=== PATIENT | male | born 1945 | race Caucasian/White ===

== ENCOUNTER 2021-10-17 10:20 | Outpatient (CLI) | payer MEDICARE | END 2021-10-17 10:21 | disposition home or self-care (01) | LOC: CSHSPEC 10:20 | PROVIDERS: ATTEND Specialist | DX: M54.16 Radiculopathy, lumbar region (principal); M54.14 Radiculopathy, thoracic region; Z95.0 Presence of cardiac pacemaker; M47.816 Spondylosis without myelopathy or radiculopathy, lumbar region; M47.814 Spondylosis without myelopathy or radiculopathy, thoracic region; M48.04 Spinal stenosis, thoracic region; Z98.890 Other specified postprocedural states | CPT/HCPCS: 71045; 72157; 72158 ==

== ENCOUNTER 2022-12-04 10:59 | Outpatient (CLI) | payer MEDICARE ==
[~2022-12-04 10:59] MED LIST: Magnevist 469MG/ML 20 ML VIAL ONE
== END 2022-12-04 11:00 | disposition home or self-care (01) ==
LOC: CSHSPEC 10:59
PROVIDERS: ATTEND Specialist
DX: I25.10 Atherosclerotic heart disease of native coronary artery without angina pectoris (principal); M54.16 Radiculopathy, lumbar region; I70.0 Atherosclerosis of aorta; Z95.9 Presence of cardiac and vascular implant and graft, unspecified; Z98.890 Other specified postprocedural states; M47.816 Spondylosis without myelopathy or radiculopathy, lumbar region
CPT/HCPCS: 71046; 72158; 82565; A9579

== ENCOUNTER 2023-04-15 06:39 | Inpatient (IN) | payer MEDICARE ==
[2023-04-15] MEDS ORDERED: PHENYLEPHRINE-NS 100 MCG/ML 10 ML SYRINGE ONE (06:54)
[2023-04-15] MEDS ORDERED: Lidocaine 1% (PF) 30 ML VIAL ONE (06:54)
[2023-04-15] MEDS ORDERED: Atropine Sulfate 0.4 mg/1 ml Vial ONE (06:56)
[2023-04-15] MEDS ORDERED: Bivalirudin 250 MG VIAL ONE (06:56)
[2023-04-15] MEDS ORDERED: Diazepam 5 MG TAB ONE (07:07)
[2023-04-15] MEDS ORDERED: Aspirin 325 MG TAB ONE (07:08)
[2023-04-15 07:58] LABS: #Eosinphils 0.2 10x3/uL (0.0-0.5); #Monocytes 0.6 10x3/uL (0.0-1.1); #Neutrophils 3.2 10x3/uL (1.5-8.4); %Basophils 0.6 % (0.0-2.0); %Eosinophils 2.8 % (0.0-6.0); %Lymphocytes 35.6 % (18.0-47.0); %Monocytes 9.9 % (0.0-10.0); %Neutrophils 50.9 % (40.0-75.0); Hemoglobin 13.4 g/dL (13.5-17.5); Mean Corpuscular HGB CONC 33.8 g/dL (32.0-36.0); Mean Corpuscular Hemoglobin 29.6 pg (27.0-33.0); Mean Corpuscular Volume 87.8 fl (81.2-95.1); Mean Platelet Volume 10.1 fl (7.4-10.4); Platelet Count 322 10x3/uL (150-450); RBC Distribution Width 14.8 % (11.5-14.5); Red Blood Cell (RBC) Count 4.52 10x6/uL (4.32-5.72); White Blood Cell (WBC) Count 6.2 10x3/uL (3.5-10.5)
[2023-04-15] MEDS ORDERED: fentaNYL 50 mcg/mL 1 mL Vial ONE ×3 (08:21→09:17)
[2023-04-15 08:22] LABS: Anion Gap 14 mmol/L (10-20); BUN (Urea Nitrogen) 15 mg/dL (8.4-25.7); Calc. Creatinine Clearance 0 mL/min (70-130); Calcium 9.6 mg/dL (7.8-10.44); Carbon Dioxide 24 mmol/L (23-31); Chloride 105 mmol/L (98-107); Estimated GFR 72; Glucose 85 mg/dL (83-110); Potassium 5.4 mmol/L (3.5-5.1); Sodium 138 mmol/L (136-145)
[2023-04-15] MEDS ORDERED: Midazolam HCl 2 mg/2 ml Vial ONE ×2 (08:22→10:20)
[2023-04-15] MEDS ORDERED: TICAGRELOR 90 MG TABLET ONE (08:42)
[2023-04-15] MEDS ORDERED: Iopamidol 300 61% 100 ML VIAL FS ONE (08:49)
[2023-04-15] MEDS ORDERED: Phenylephrine 40 MG/NS 250 ML 0 ML ONE (08:49)
[2023-04-15] MEDS ORDERED: guaiFENesin ER 600 MG TAB PO PRN (10:11)
[2023-04-15] MEDS ORDERED: NAPROXEN SODIUM 220 MG PO PRN (10:11)
[2023-04-15] MEDS ORDERED: MELATONIN 5 MG PO PRN (10:11)
[2023-04-15] MEDS ORDERED: Fentanyl 100 MCG/2 ML VIAL ONE (10:18)
[2023-04-15] MEDS ORDERED: Sodium Chloride 0.9% 1,000 ML IV SCH (10:30)
[2023-04-15 10:58] VITALS: BMI 30.6
[2023-04-15] MEDS ORDERED: Acetaminophen 325 MG TAB PO PRN (11:11)
[2023-04-15] MEDS ORDERED: Aspirin/APAP/Caffeine Tab (Excedrin Migraine) PO PRN (11:16)
[2023-04-15] MEDS ORDERED: Tamsulosin HCl 0.4 MG CAP PO SCH (21:00)
[2023-04-15] MEDS ORDERED: Famotidine 20 MG TAB PO SCH (21:00)
[2023-04-15] MEDS ORDERED: [UNRECOGNIZED DRUG - OTHER] PO SCH (21:00)
[2023-04-15] MEDS ORDERED: Clopidogrel Bisulfate 75 MG TAB PO SCH (21:00)
[2023-04-15] MEDS ORDERED: Losartan 25 MG TAB PO SCH (21:00)
[2023-04-15] MEDS ORDERED: Finasteride 5 MG TAB PO SCH (21:00)
[2023-04-15] MEDS ORDERED: Rosuvastatin 10 MG TAB PO SCH (21:00)
[2023-04-15] MEDS ORDERED: Sertraline 100 MG TAB PO SCH (21:00)
[2023-04-15] MEDS: DULoxetine 30 MG CAP PO SCH (21:05)
[2023-04-15] MEDS: Metamucil PACK PO SCH (21:06)
[2023-04-16 04:39] LABS: #Basophils 0.1 10x3/uL (0.0-0.2); #Eosinphils 0.2 10x3/uL (0.0-0.5); #Monocytes 0.7 10x3/uL (0.0-1.1); #Neutrophils 3.9 10x3/uL (1.5-8.4); %Basophils 0.7 % (0.0-2.0); %Eosinophils 2.6 % (0.0-6.0); %Monocytes 10.5 % (0.0-10.0); %Neutrophils 55.9 % (40.0-75.0); Mean Corpuscular HGB CONC 33.4 g/dL (32.0-36.0); Mean Corpuscular Hemoglobin 29.7 pg (27.0-33.0); Mean Corpuscular Volume 88.9 fl (81.2-95.1); Mean Platelet Volume 9.2 fl (7.4-10.4); Platelet Count 244 10x3/uL (150-450); RBC Distribution Width 14.6 % (11.5-14.5); White Blood Cell (WBC) Count 6.9 10x3/uL (3.5-10.5)
[2023-04-16 04:47] LABS: ALT (SGPT) 21 U/L (8-55); AST (SGOT) 16 U/L (5-34); Albumin 3.6 g/dL (3.4-4.8); Alkaline Phosphatase 67 U/L (40-110); Anion Gap 9 mmol/L (10-20); BUN (Urea Nitrogen) 17 mg/dL (8.4-25.7); Bilirubin, Total 0.2 mg/dL (0.2-1.2); Calc. Creatinine Clearance 90 mL/min (70-130); Calcium 8.8 mg/dL (7.8-10.44); Carbon Dioxide 28 mmol/L (23-31); Chloride 105 mmol/L (98-107); Estimated GFR 72; Globulin 2.3 g/dL (2.4-3.5); Glucose 100 mg/dL (83-110); Potassium 4.1 mmol/L (3.5-5.1); Protein, Total 5.9 g/dL (5.8-8.1); Sodium 138 mmol/L (136-145)
[2023-04-16] MEDS: Metamucil PACK PO SCH (08:21)
[2023-04-16] MEDS: DULoxetine 30 MG CAP PO SCH (08:21)
[2023-04-16 08:29] VITALS: BP 166/63; TEMP 98.1
[2023-04-16] MEDS ORDERED: Methotrexate Sodium 2.5 MG TAB PO SCH (09:00)
[2023-04-16] MEDS ORDERED: Docusate 100 MG CAP PO SCH (09:00)
[2023-04-16] MEDS ORDERED: Fish Oil 1,000 MG CAP PO SCH (09:00)
[2023-04-16] MEDS ORDERED: Aspirin 81 mg Enteric Coated Tablet PO SCH (09:00)
[2023-04-16] MEDS ORDERED: Folic Acid 1 MG TAB PO SCH (09:00)
[2023-04-16] MEDS ORDERED: Calcium Carbonate 600 MG + Vit D TAB PO SCH (09:00)
[2023-04-16] MEDS ORDERED: Loratadine 10 MG TAB PO PRN (09:00)
== END 2023-04-16 10:00 | disposition home or self-care (01) | DRG 39 ==
LOC: CSHSDC 06:39 → CSHICU 10:38
PROVIDERS: ADMIT Specialist; ATTEND Specialist
PROC: 037L3ZZ Dilation of Left Internal Carotid Artery, Percutaneous Approach (ICD-10-PCS; principal; 2023-04-15)
PROC: B3181ZZ Fluoroscopy of Bilateral Internal Carotid Arteries using Low Osmolar Contrast (ICD-10-PCS; 2023-04-15)
PROC: B3101ZZ Fluoroscopy of Thoracic Aorta using Low Osmolar Contrast (ICD-10-PCS; 2023-04-15)
DX: I65.22 Occlusion and stenosis of left carotid artery (principal); I25.10 Atherosclerotic heart disease of native coronary artery without angina pectoris; I10 Essential (primary) hypertension; I49.5 Sick sinus syndrome; G47.33 Obstructive sleep apnea (adult) (pediatric); K21.9 Gastro-esophageal reflux disease without esophagitis; E78.2 Mixed hyperlipidemia; N40.0 Benign prostatic hyperplasia without lower urinary tract symptoms; Z96.652 Presence of left artificial knee joint; I73.9 Peripheral vascular disease, unspecified; E66.9 Obesity, unspecified; Z95.0 Presence of cardiac pacemaker; Z95.5 Presence of coronary angioplasty implant and graft; Z86.73 Personal history of transient ischemic attack (TIA), and cerebral infarction without residual deficits; Z87.891 Personal history of nicotine dependence; Z98.890 Other specified postprocedural states; Z88.2 Allergy status to sulfonamides; Z88.5 Allergy status to narcotic agent; Z68.30 Body mass index [BMI] 30.0-30.9, adult
CPT/HCPCS: 36223; 36228; 37246; 80048; 80053; 85025; 93005; 93010; 99152; 99153; C1760; C1769; C1876; C1884; C1887; C1894; J0461; J0583; J2001; J2250; J3010; Q9967

== ENCOUNTER 2023-05-28 11:03 | Outpatient (CLI) | payer MEDICARE ==
[2023-05-28] MEDS ORDERED: Magnevist 469MG/ML 20 ML VIAL ONE (15:29)
== END 2023-05-28 11:04 | disposition home or self-care (01) ==
LOC: CSHSPEC 11:03
PROVIDERS: ATTEND Specialist
DX: M51.16 Intervertebral disc disorders with radiculopathy, lumbar region (principal); Z95.0 Presence of cardiac pacemaker; M47.26 Other spondylosis with radiculopathy, lumbar region; Z98.890 Other specified postprocedural states
CPT/HCPCS: 71046; 72158; 82565; A9579

== ENCOUNTER 2025-06-24 09:46 | Outpatient (CLI) | payer MEDICARE | END 2025-06-24 09:47 | disposition home or self-care (01) | LOC: CSHMRI 09:46 | PROVIDERS: ATTEND Specialist | DX: Z01.818 Encounter for other preprocedural examination (principal); M51.16 Intervertebral disc disorders with radiculopathy, lumbar region; Z95.0 Presence of cardiac pacemaker; M47.26 Other spondylosis with radiculopathy, lumbar region; M48.061 Spinal stenosis, lumbar region without neurogenic claudication | CPT/HCPCS: 71046; 72148 ==